=== PATIENT | female | born 1960 | race Caucasian/White ===

== ENCOUNTER 2019-07-17 21:43 | Inpatient (IN) ==
[2019-07-18] MEDS ORDERED: Naloxone 0.4 MG/ML INJ IVP PRN ×2 (00:39→18:05)
[2019-07-18] MEDS: *HR* FentaNYL (PF) 100 MCG/2 ML VIAL IVP PRN ×9 (00:46→12:08)
[2019-07-18 04:11] LABS: Prothrombin Time 11.3 Seconds (9.4-12.1)
[2019-07-18 04:14] LABS: Activated Partial Thrombo Time 26.4 Seconds (26.0-36.0)
[2019-07-18 04:23] LABS: Hematocrit 41.8 % (35.3-44.9); Mean Corpuscular HGB Conc 31.1 g/dL (31.6-35.5); Mean Corpuscular Hemoglobin 31.3 pg (28.0-33.3); Mean Corpuscular Volume 100.5 fL (83.0-100.0); Mean Platelet Volume 9.6 fL (9.4-12.4); Platelet Count 192 K/mcL (140-400); Red Blood Count 4.16 M/mcL (3.82-4.97); Red Cell Distribution Width 14.5 % (11.5-14.5); White Blood Count 15.4 K/mcL (4.3-11.1)
[2019-07-18 04:27] LABS: BUN/Creatinine Ratio 20 (6-26); Blood Urea Nitrogen 16 mg/dL (6-20); Carbon Dioxide 24 mEq/L (23-29); Chloride 105 mEq/L (98-107); Glucose 114 mg/dL (70-105); Osmolality,Calculated 284 (280-300); Potassium 4.4 mEq/L (3.5-5.1); Sodium 136 mEq/L (136-145); eGFR For African Americans > 60 (> 60); eGFR For Non-African Americans > 60 (> 60)
[2019-07-18] MEDS ORDERED: 0.9 % Sodium Chloride 1,000 ML IVC ONE (06:18)
[2019-07-18 06:40] LABS: Troponin I < 0.03 ng/mL (< 0.04)
[2019-07-18] MEDS ORDERED: Ipratropium/Albuterol Neb 3 ML IH STA (07:02)
[2019-07-18] MEDS: Ipratropium/Albuterol Neb 3 ML IH ONE ×2 (10:08→12:45)
[2019-07-18 13:18] LABS: Bilirubin,Urine Negative (Negative); Blood,Urine Trace (Negative); Clarity,Urine Cloudy (Clear); Color,Urine Yellow (Yellow); Glucose,Urine (UA) Normal (Normal); Ketones,Urine Negative (Negative); Leukocyte Esterase,Urine Small (Negative); Nitrite,Urine Negative (Negative); Protein,Urine Negative (Neg-Trace); Specific Gravity,Urine 1.018 (1.010-1.025); Urobilinogen,Urine Normal (Normal)
[2019-07-18 13:21] LABS: Hyaline Casts,Urine None Seen per lpf (None-Few); Squamous Epithelial Cell,Urine Many per lpf (None-Few)
[2019-07-18 13:44] LABS: Bacteria,Urine Moderate per hpf (None-Few); RBC,Urine 0-3 per hpf (0-3)
[2019-07-18] MEDS ORDERED: Pregabalin 75 MG CAPSULE ONE (14:27)
[2019-07-18] MEDS ORDERED: Scopolamine Patch 1.5 MG PATCH.TD72 ONE (14:28)
[2019-07-18] MEDS ORDERED: Acetaminophen IV 1,000 MG/100 ML INFUS..BTL ONE (14:28)
[2019-07-18] MEDS ORDERED: Clindamycin 900 MG/50 ML 900 MG/50 ML IV.SOLN IVPB ONE ×2 (14:51→15:46)
[2019-07-18] MEDS ORDERED: Ethanol\\Acetic Acid\\Na Ace\\Ben 1,000 ML IRRIG.SOLN IR ONE ×2 (15:00→15:43)
[2019-07-18] MEDS ORDERED: *HR* FentaNYL (PF) 100 MCG/2 ML VIAL ONE (15:18)
[2019-07-18] MEDS ORDERED: *HR* Midazolam HCl 2 MG/2 ML VIAL ONE (15:18)
[2019-07-18] MEDS ORDERED: *HR* Propofol 200 MG/20 ML VIAL IVP ONE (15:18)
[2019-07-18] MEDS ORDERED: *HR* Succinylcholine 200 MG/10 ML VIAL IVP ONE (15:20)
[2019-07-18] MEDS ORDERED: Lidocaine -MPF 2% 2 ML VIAL ONE (15:20)
[2019-07-18] MEDS ORDERED: Dexamethasone 4 MG/ML VIAL ONE (16:03)
[2019-07-18] MEDS ORDERED: Ondansetron 4 MG/2 ML VIAL ONE (16:03)
[2019-07-18] MEDS ORDERED: *HR* PHENYLEPHRINE 1,000 MCG/10 ML SYRINGE IVP ONE ×2 (16:03→16:46)
[2019-07-18] MEDS ORDERED: Tranexamic Acid 1,000 MG/10 ML VIAL ONE (16:11)
[2019-07-18 17:45] LABS: Hemoglobin 11.9 g/dL (11.5-15.4)
[2019-07-18] MEDS ORDERED: MOM Conc 10 ML UD.LIQ PO PRN (18:05)
[2019-07-18] MEDS ORDERED: *HR* Dextrose 50 % in Water (Syg) 50 ML SYRINGE IVP PRN (18:05)
[2019-07-18] MEDS ORDERED: Dextrose Gel 15 GM/37.5 ML TUBE PO PRN ×2 (18:05)
[2019-07-18] MEDS ORDERED: D5% in Water 1,000 ML IVC PRN (18:05)
[2019-07-18] MEDS ORDERED: Ringers Solution, Lactated 1,000 ML IVC SCH (18:05)
[2019-07-18] MEDS ORDERED: HYDROcodone BIT/Homatropine 5 MG TABLET PO PRN (18:05)
[2019-07-18] MEDS ORDERED: *HR* Promethazine 25 MG/ML VIAL IVP PRN (18:05)
[2019-07-18] MEDS ORDERED: Sennosides 8.6 MG TABLET PO PRN (18:05)
[2019-07-18] MEDS: Ascorbic Acid 500 MG TABLET PO SCH (19:45)
[2019-07-18] MEDS: Clindamycin 900 MG/50 ML 900 MG/50 ML IV.SOLN IVPB SCH (23:55)
[2019-07-19] MEDS: *HR* OxyCODONE Immed Rel 5 MG TABLET PO PRN ×5 (02:08→21:12)
[2019-07-19 02:13] LABS: Basophils % 0.1 %; Hematocrit 38.5 % (35.3-44.9); Hemoglobin 12.2 g/dL (11.5-15.4); Immature Granulocytes % 1.1 % (0-4); Lymphocytes # 0.7 K/mcL (0.6-4.6); Lymphocytes % 3.3 %; Mean Corpuscular HGB Conc 31.7 g/dL (31.6-35.5); Mean Corpuscular Volume 97.7 fL (83.0-100.0); Mean Platelet Volume 9.6 fL (9.4-12.4); Monocytes % 4.8 %; Neutrophils # 19.2 K/mcL (1.6-8.9); Platelet Count 166 K/mcL (140-400); Red Blood Count 3.94 M/mcL (3.82-4.97); Red Cell Distribution Width 14.2 % (11.5-14.5); Segmented Neutrophils % 90.7 %; White Blood Count 21.2 K/mcL (4.3-11.1)
[2019-07-19 02:25] LABS: BUN/Creatinine Ratio 22 (6-26); Blood Urea Nitrogen 17 mg/dL (6-20); Carbon Dioxide 24 mEq/L (23-29); Chloride 104 mEq/L (98-107); Glucose 121 mg/dL (70-105); Osmolality,Calculated 285 (280-300); Sodium 136 mEq/L (136-145); eGFR For African Americans > 60 (> 60); eGFR For Non-African Americans > 60 (> 60)
[2019-07-19] MEDS: Clindamycin 900 MG/50 ML 900 MG/50 ML IV.SOLN IVPB SCH (07:39)
[2019-07-19] MEDS: Ascorbic Acid 500 MG TABLET PO SCH ×2 (07:39→15:53)
[2019-07-19] MEDS: Multivit/Ca/Min/Fe/FA 1 TAB TABLET PO SCH (07:39)
[2019-07-19] MEDS: Ondansetron 4 MG/2 ML VIAL IVP PRN (08:31)
[2019-07-19] MEDS ORDERED: Aspirin Enteric Coated 81 MG Tablet PO SCH (15:08)
[2019-07-19] MEDS: metroNIDAZOLE 500 MG TABLET PO SCH ×2 (15:53→21:09)
[2019-07-19] MEDS: *HR* Enoxaparin 30 MG/0.3 ML SYRINGE SQ SCH (18:31)
[2019-07-19] MEDS ORDERED: Verapamil ER (24 HR) 120 MG TABLET.ER PO SCH (21:00)
[2019-07-19] MEDS ORDERED: Verapamil ER (24 HR) 180 MG TABLET.ER PO SCH (21:00)
[2019-07-20 02:01] LABS: Basophils % 0.2 %; Eosinophils # 0.1 K/mcL (0.0-0.6); Eosinophils % 0.7 %; Hematocrit 31.7 % (35.3-44.9); Immature Granulocytes % 0.5 % (0-4); Lymphocytes % 13.8 %; Mean Corpuscular HGB Conc 31.9 g/dL (31.6-35.5); Mean Corpuscular Hemoglobin 31.6 pg (28.0-33.3); Mean Corpuscular Volume 99.1 fL (83.0-100.0); Monocytes # 0.9 K/mcL (0.0-1.3); Neutrophils # 11.6 K/mcL (1.6-8.9); Platelet Count 161 K/mcL (140-400); Red Cell Distribution Width 14.3 % (11.5-14.5); Segmented Neutrophils % 78.8 %; White Blood Count 14.7 K/mcL (4.3-11.1)
[2019-07-20 02:02] LABS: Hemoglobin 10.1 g/dL (11.5-15.4)
[2019-07-20 02:30] LABS: BUN/Creatinine Ratio 25 (6-26); Blood Urea Nitrogen 27 mg/dL (6-20); Calcium 8.6 mg/dL (8.6-10.3); Carbon Dioxide 28 mEq/L (23-29); Chloride 100 mEq/L (98-107); Glucose 101 mg/dL (70-105); Osmolality,Calculated 281 (280-300); Potassium 4.4 mEq/L (3.5-5.1); Sodium 133 mEq/L (136-145); eGFR For African Americans > 60 (> 60); eGFR For Non-African Americans 52 (> 60)
[2019-07-20] MEDS: *HR* Enoxaparin 30 MG/0.3 ML SYRINGE SQ SCH (05:44)
[2019-07-20] MEDS: Ascorbic Acid 500 MG TABLET PO SCH (07:37)
[2019-07-20] MEDS: metroNIDAZOLE 500 MG TABLET PO SCH (07:38)
[2019-07-20] MEDS: Multivit/Ca/Min/Fe/FA 1 TAB TABLET PO SCH (07:39)
[2019-07-20] MEDS: *HR* OxyCODONE Immed Rel 5 MG TABLET PO PRN (07:49)
[2019-07-20] MEDS: Ondansetron 4 MG/2 ML VIAL IVP PRN (07:49)
[2019-07-20 10:27] VITALS: BP 102/64
== END 2019-07-20 12:37 | DRG 469 ==
LOC: 3NENU → SUATTDRO 22:54
PROVIDERS: ADMIT Internal Medicine; ATTEND Family Medicine